=== PATIENT | male | born 1965 | race Caucasian/White ===

== ENCOUNTER 2016-03-10 22:17 | Emergency (ER) | payer SELFPAY ==
[2016-03-10] MEDS ORDERED: OPTIRAY 350 100 ML VIAL HMH IV ONE (22:18)
== END 2016-03-11 01:19 | disposition home or self-care (01) ==
LOC: ER 22:17
CPT/HCPCS: 36415; 70450; 71260; 72100; 72125; 74177; 80053; 81003; 85025; 85610; 85730